=== PATIENT | female | born 1965 | race Hispanic/Latino ===

== ENCOUNTER → 2019-04-05 | Day surgery (SDC) | payer OTHER ==
[~2019-04-05] MED LIST: FENTANYL CITRATE/PF 100MCG/2 ML INJ ONE; HYOSCYAMINE SULFATE 0.5 MG/ML INJ ONE; LIDOCAINE HCL 2% LOCAL INJ 5 ML SDV VIAL INJ ONE; MIDAZOLAM HCL 2 MG/2 ML VIAL ONE; PROPOFOL IV EMULSION 10 MG/ML 50 ML VIAL ONE
[2019-04-05 11:00] VITALS: BP 112/72
--- NOTE | 2019-04-05 18:28 | Operative Report ---
DATE OF PROCEDURE: 04/05/2019 SURGEON: Gregg Cardenas MD REFERRING PHYSICIAN: Shira Milton PROCEDURES: 1. Colonoscopy. 2. Polypectomy. INDICATIONS FOR COLONOSCOPY: Colorectal cancer screening. MEDICATIONS: The patient was done under MAC, please see anesthesiologist's note. PROCEDURE IN DETAIL: With the patient in left lateral decubitus position, the flexible fiberoptic Olympus colonoscope was inserted into the rectum with ease and advanced all the way to the cecum. It was then withdrawn slowly and mucosa overlying the cecum, ascending colon, transverse colon, descending colon appeared to be within normal limits. Diverticular disease was noted to involve the sigmoid colon. Two polyps were removed per hot biopsy forceps from the rectum. The scope was then retroflexed into the distal rectum and small internal hemorrhoids were noted, none of which was actively bleeding. The scope was then straightened out, it was subsequently withdrawn. The patient tolerated the procedure well. IMPRESSION: 1. Diverticulosis. 2. Rectal polyps x2, hot biopsied. 3. Internal hemorrhoids, none actively bleeding. PLAN: Follow up histology. Initiate high-fiber, low-fat diet. Initiate high-fiber supplement. The patient might benefit from a followup colonoscopy in 5 years. Gregg Cardenas MD [facility] [place] /[id number]
== END | disposition home or self-care (01) ==
LOC: OR 08:17
PROVIDERS: ATTEND Internal Medicine Gastroenterology
DX: Z12.11 Encounter for screening for malignant neoplasm of colon (principal); K62.1 Rectal polyp; K57.30 Diverticulosis of large intestine without perforation or abscess without bleeding; K64.8 Other hemorrhoids; Z80.0 Family history of malignant neoplasm of digestive organs; R14.0 Abdominal distension (gaseous); Z68.34 Body mass index [BMI] 34.0-34.9, adult; Z01.810 Encounter for preprocedural cardiovascular examination
CPT/HCPCS: 45384; 93005; J1980; J2001; J2250; J2704; 45378

== ENCOUNTER 2019-07-16 03:13 | Emergency (ER) | payer OTHER ==
[~2019-07-16] VITALS: Ht 157.5 cm; Wt 81.6 kg
--- OUTSIDE RECORDS SUMMARY | 2019-07-16 03:16 | XMS REPORT ---
Author Author [facility] Address Unknown Phone Unavailable Care Team Providers Care Shaker Repairer Name Role Phone Unavailable Unavailable Problems This patient has no known problems. Allergies, Adverse Reactions, Alerts This patient has no known allergies or adverse reactions. Medications This patient has no known medications. Results Test Description Test Time Test Comments Text Results Atomic Results Result Comments SCR MAMM BILATERAL MILADY CAD DIGITAL 2019-04-06 14:12:30 - SCR MAMM BILATERAL MILADY CAD DIGITALBILATERAL DIGITAL SCREENING MAMMOGRAM 3D/2D WITH CAD: 04/06/2019CLINICAL: Asymptomatic. Digital breast tomosynthesis was performed in addition to routine CC and MLO views. Current mammographic images were evaluated by either a Catarizm M-Vu or a Conductiv ImageChecker CAD (computer aided detection system). Comparison is made to exams dated 12/25/2017 mammogram, 12/05 mammogram, and 11/21/2015 mammogram - [facility]. The tissue of both breasts is predominantly fatty. There is vascular calcification in the right breast. There also is a stable benign-appearing focal asymmetry in the left breast. No suspicious new mass, architectural distortion, malignant type calcification, or lymph node abnormality detected. Breast architecture is stable compared to prior exams.IMPRESSION: BENIGNThere is no mammographic evidence of malignancy. Resume annual screening mammography in one year. Juan Kearney M.D. rb/:04/06/2019 14:12:30 Ore Trimmer: Blanca Mckenzie , [facility] sent: BIRADS 1-2 Normal Mammogram BI-RADS: 2 Benign
--- NOTE | 2019-07-16 05:33 | Diagnostic Imaging Report ---
EXAM: CT Abdomen and Pelvis WITHOUT contrast INDICATION: Blood in urine, burning COMPARISON: None. TECHNIQUE: Abdomen and pelvis were scanned utilizing a multidetector helical scanner from the lung base to the pubic symphysis without administration of IV contrast. Absence of intravenous contrast decreases sensitivity for detection of focal lesions and vascular pathology. Coronal and sagittal reformations were obtained. Routine protocol was performed. IV CONTRAST: None ORAL CONTRAST: None COMPLICATIONS: None RADIATION DOSE: Total DLP: 749 mGy*cm Estimated effective dose: (DLP x 0.015 x size factor) mSv CTDIvol has been reviewed. It is below the limits set by the Radiation Protocol Committee (RPC). Dose modulation, iterative reconstruction, and/or weight based adjustment of the mA/kV was utilized to reduce the radiation dose to as low as reasonably achievable. FINDINGS: LINES and TUBES: None. LOWER THORAX: Unremarkable HEPATOBILIARY: No focal hepatic lesions. No biliary ductal dilation. GALLBLADDER: No radio-opaque stones or sludge. No wall thickening. SPLEEN: No splenomegaly. PANCREAS: No focal masses or ductal dilatation. ADRENALS: No right adrenal nodules. There are 2 benign 1 cm lipid rich adenomas in the left adrenal gland. KIDNEYS/URETERS: No hydronephrosis. No cystic or solid mass lesions. No stones. GI TRACT: No abnormal distention, wall thickening, or evidence of bowel obstruction. Appendix is normal. PELVIC ORGANS/BLADDER: Mild circumferential bladder wall thickening. LYMPH NODES: No lymphadenopathy. VESSELS: Unremarkable. PERITONEUM / RETROPERITONEUM: No free air or fluid. BONES: Unremarkable. SOFT TISSUES: Mild edema in the subcutaneous soft tissues of the abdomen. IMPRESSION: Mild circumferential bladder wall thickening, correlate for cystitis. Colonic diverticulosis without diverticulitis. Signed by: Víctor Dawson DO on 07/16/2019 5:29 AM
== END 2019-07-16 05:55 | disposition home or self-care (01) ==
LOC: FSED 03:13
DX: R30.0 Dysuria (principal); R10.30 Lower abdominal pain, unspecified; N30.00 Acute cystitis without hematuria
CPT/HCPCS: 74176; 80048; 80076; 81003; 85025; 87086; 87186; 99284

== ENCOUNTER 2025-05-19 00:04 | Emergency (ER) | payer OTHER ==
[~2025-05-19] VITALS: Ht 154.9 cm; Wt 89.4 kg
[2025-05-19] MEDS ORDERED: CIPRO500 MG PO (01:25)
[2025-05-19] MEDS ORDERED: PYRIDIUM100 MG PO (01:26)
[2025-05-19 01:52] VITALS: PULSE 71; RESP 16; TEMP 98.3; O2SAT 99
== END 2025-05-19 01:55 | disposition home or self-care (01) ==
LOC: FSED 00:41
DX: R30.0 Dysuria (principal); N39.0 Urinary tract infection, site not specified; R31.9 Hematuria, unspecified
CPT/HCPCS: 81003; 99283